=== PATIENT | female | born 1995 | race Caucasian/White ===

== ENCOUNTER 2019-09-10 11:16 | Emergency (ER) | payer OTHER ==
--- NOTE | 2019-09-10 12:16 | EKG ---
Test Date: 2019-09-10 Test Time: 11:40:36 [place] Planning Manager: GLADIS MEASUREMENT RESULTS: Intervals: Rate: 88 WV: 148 QRSD: 92 QT: 366 QTc: 442 [place]: P: 29 WV: 148 QRS: -14 T: 16 INTERPRETIVE STATEMENTS: Normal sinus rhythm Incomplete right bundle branch block Borderline ECG No previous ECG available for comparison Electronically Signed On 09-10-19 12:16:09 DOOR TRIMMER by Adrian Suarez
[2019-09-10 12:20] LABS: Absolute Lymphocytes (CBC) 1.1 K/uL (0.7-4.9); Basophils % 0.2 % (0-1.3); Hematocrit 41.8 % (36.0-45.0); Lymphocytes % 7.2 % (15.3-44.8); MPV 9.1 fL (7.6-11.3); RBC Red Blood Cell Count 5.02 M/uL (3.86-4.86)
[2019-09-10] MEDS ORDERED: NA CHLORIDE 0.9% 1,000 ML ONE (12:21)
[2019-09-10] MEDS ORDERED: KETOROLAC 30 MG/ML INJ ONE (12:21)
--- NOTE | 2019-09-10 12:21 | RAD REPORT ---
EXAM DESCRIPTION: RAD - Chest Single View - 09/10/2019 12:15 pm CLINICAL HISTORY: Chest pain COMPARISON: None. TECHNIQUE: AP portable chest image was obtained 1152 hours . FINDINGS: Lungs are clear. Heart and vasculature are normal. No measurable pleural effusion and no p neumothorax. No acute bony abnormality seen. No acute aortic findings suspected. IMPRESSION: No acute cardiopulmonary process.
[2019-09-10 12:54] LABS: ALT/SGPT 25 U/L (12-78); AST/SGOT 17 U/L (15-37); Albumin 4.6 g/dL (3.4-5.0); Alkaline Phosphatase 79 U/L (45-117); BUN Blood Urea Nitrogen 15 mg/dL (7-18); Bicarbonate 27 mmol/L (21-32); Bilirubin Direct 0.2 mg/dL (0-0.2); Glucose Level 91 mg/dL (74-106); Potassium 4.2 mmol/L (3.5-5.1); Protein, Total 8.3 g/dL (6.4-8.2); Sodium Level 139 mmol/L (136-145)
[2019-09-10 12:55] LABS: NT PRO-BNP 22 pg/mL (<125); Troponin (Emerg Dept Use Only) < 0.02 ng/mL (0.0-0.045)
[2019-09-10 13:37] LABS: Urine Blood 2+ (NEG); Urine Glucose NEGATIVE (NEG); Urine Protein 1+ (NEG); Urine Specific Gravity 1.015 (1.005-1.030); Urine pH >8.5 (5.0-7.0)
--- NOTE | 2019-09-10 13:52 | RAD REPORT ---
EXAM DESCRIPTION: CT - Chest For Pe Angio - 09/10/2019 1:25 pm CLINICAL HISTORY: CHEST PAIN COMPARISON: Chest Single View dated 09/10/2019 TECHNIQUE: Dynamically enhanced 3 mm thick images of the chest were obtained during administration o f approximately 150mL Isovue 370 IV contrast. Coronal and oblique MIP reconstruction images were gene rated and reviewed. Exam utilizes a protocol to evaluate the pulmonary arterial tree. All CT scans are performed using dose optimization technique as appropriate and may include automated exposure control or mA/KV adjustment according to patient size. FINDINGS: No pulmonary emboli are identified. Lung base assessment in the far peripheral branches so mewhat limited due to motion. Likelihood of pulmonary embolic disease is felt to be low. The aorta as imaged shows no acute or suspicious finding. No pericardial thickening or effusion. No infiltrate or mass in the lung parenchyma. No pleural effusion or pleural thickening. No mediastinal or hilar suspicious masses. No chest wall masses or abnormal axillary lymphadenopathy. IMPRESSION: No pulmonary emboli identified. No other significant or suspicious findings.
--- NOTE | 2019-09-10 14:30 | EDPHYS ---
Physician Documentation [facility] Name: Ebony Bolivar Age: 23 yrs Sex: Female : 1995 Arrival Date: 09/10/2019 Time: 11:29 Bed 14 Private MD: ED Physician Jung Knowles HPI: 09/10 11:50 This 23 yrs old Female presents to ER via EMS with complaints of Chest Pain. cp 11:50 The patient or guardian reports chest pain that is located primarily in the substernal cp area. 11:50 The pain radiates to left upper chest. cp 11:50 Associated signs and symptoms: Pertinent positives: palpitations, shortness of breath, cp Pertinent negatives: abdominal pain, lower extremity pain, lower extremity swelling, syncope. The chest pain is described as sharp. Duration: The patient or guardian reports a single episode, that is still ongoing. 11:50 Severity of pain: in the emergency department the pain is a 8 / 10. Patient reports cp being ill over past 2 weeks causing her to be inactive and in bed over this time. 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 - Social history:: Smoking status: Patient/guardian denies using tobacco. - Ebola Screening: : No symptoms or risks identified at this time. ROS: 11:57 Constitutional: Negative for body aches, chills, fever, poor PO intake. cp 11:57 Eyes: Negative for injury, pain, redness, and discharge. cp 11:57 ENT: Negative for drainage from ear(s), ear pain, sore throat, difficulty swallowing, difficulty handling secretions. 11:57 Cardiovascular: Positive for chest pain, of the mid-sternal area and anterior aspect of left upper chest, palpitations, Negative for edema. 11:57 Respiratory: Positive for shortness of breath, at rest. Negative for cough, wheezing. 11:57 Abdomen/GI: Negative for abdominal pain, nausea, vomiting, and diarrhea. 11:57 Back: Negative for pain at rest, pain with movement. 11:57 Skin: Negative for rash. 11:57 Neuro: Negative for altered mental status, headache, syncope, weakness. 11:57 All other systems are negative. Exam: 11:50 ECG was reviewed by the Attending Physician. cp 12:00 Constitutional: The patient appears in no acute distress, alert, awake, cp non-diaphoretic, non-toxic, well developed, well nourished. 12:00 Head/Face: Normocephalic, atraumatic. cp 12:00 Eyes: Periorbital structures: appear normal, Conjunctiva: normal, no exudate, no injection, Lids and lashes: appear normal, bilaterally. 12:00 ENT: External ear(s): are unremarkable, Nose: is normal, Mouth: is normal, Posterior pharynx: is normal, airway is patent, no erythema, no exudate. 12:00 Neck: ROM/movement: is normal, is supple, without pain, no range of motions limitations, no nuchal rigidity. 12:00 Chest/axilla: Inspection: normal. 12:00 Cardiovascular: Rate: normal, Rhythm: regular, Heart sounds: murmur, not appreciated, rub, not appreciated, gallop, not appreciated, Edema: is not appreciated, JVD: is not appreciated. 12:00 Respiratory: the patient does not display signs of respiratory distress, Respirations: normal, no use of accessory muscles, no retractions, no splinting, no tachypnea, labored breathing, is not present, Breath sounds: are clear throughout, no decreased breath sounds, no stridor, no wheezing. 12:00 Abdomen/GI: Inspection: abdomen appears normal, Palpation: abdomen is soft and non-tender, in all quadrants. 12:00 Back: pain, is absent, ROM is normal. 12:00 Skin: no rash present. 12:00 Neuro: Orientation: to person, place \T\ time. Mentation: is normal, Cerebellar function: is grossly normal, Motor: moves all fours, strength is normal, Sensation: is normal. Vital Signs: 11:35 BP 120 / 64; Pulse 91; Resp 18; Temp 97.9; Pulse Ox 100% on R/A; Weight 74.84 kg; hb Height 5 ft. 3 in. (160.02 cm); Pain 8/10; 13:13 BP 105 / 48; Pulse 82; Resp 17; Temp 97.6(O); Pulse Ox 100% on R/A; mh5 14:38 BP 116 / 72; Pulse 86; Resp 17 S; Pulse Ox 100% on R/A; ca1 11:35 Body Mass Index 29.23 (74.84 kg, 160.02 cm) hb MDM: 11:30 Patient medically screened. john 12:00 Differential diagnosis: abnormal EKG, chest wall pain, cholecystitis, Cholelithiasis cp costochondritis, myocarditis, pancreatitis, pericarditis, pleurisy, pneumonia, pneumothorax, pulmonary embolus. 14:28 Data reviewed: vital signs, nurses notes, lab test result(s), EKG, radiologic studies, cp CT scan, plain films. 14:28 Test interpretation: by ED physician or midlevel provider: ECG, plain radiologic cp studies, chest xray negative for infiltrates. Counseling: I had a detailed discussion with the patient and/or guardian regarding: the historical points, exam findings, and any diagnostic results supporting the discharge/admit diagnosis, lab results, radiology results, to return to the emergency department if symptoms worsen or persist or if there are any questions or concerns that arise at home. Response to treatment: the patient's symptoms have markedly improved after treatment, and as a result, I will discharge patient. Special discussion: Based on the patient's history, exam, and Dx evaluation, there is no indication for emergent intervention or inpatient Tx. It is understood by the patient/guardian that if the Sx's persist or worsen they need to return immediately for re-evaluation. 09/10 11:48 Order name: Basic Metabolic Panel; Complete Time: 13:39 cp 09/10 11:48 Order name: CBC with Diff; Complete Time: 12:37 cp 09/10 12:37 Interpretation: Normal except: WBC 15.6; RBC 5.02; KENRICK% 86.8; LYM% 7.2; NEUT A 13.6. cp 09/10 11:48 Order name: LFT's; Complete Time: 13:39 cp 09/10 13:40 Interpretation: Normal except: TP 8.3; GLOB 3.7. cp 09/10 11:48 Order name: Magnesium; Complete Time: 13:39 cp 09/10 11:48 Order name: NT PRO-BNP; Complete Time: 13:39 cp 09/10 11:48 Order name: PT-INR; Complete Time: 12:37 cp 09/10 11:48 Order name: Troponin (emerg Dept Use Only); Complete Time: 13:40 cp 09/10 11:48 Order name: XRAY Chest (1 view); Complete Time: 12:37 cp 09/10 11:48 Order name: D-Dimer; Complete Time: 12:37 cp 09/10 12:37 Order name: CT Chest For PE Angio; Complete Time: 13:54 cp 09/10 13:55 Interpretation: Report reviewed. cp 09/10 12:49 Order name: Urine Dipstick--Ancillary (enter results); Complete Time: 13:39 eb 09/10 13:40 Interpretation: Normal except: UKET 2+; UBLD 2+; UPROT 1+. cp 09/10 12:49 Order name: Urine --Ancillary (enter results); Complete Time: 13:40 eb 09/10 11:37 Order name: EKG; Complete Time: 11:37 cp 09/10 11:37 Order name: EKG - Nurse/Tech; Complete Time: 11:40 cp 09/10 11:48 Order name: Cardiac monitoring; Complete Time: 12:30 cp 09/10 11:48 Order name: IV Saline Lock; Complete Time: 12:30 cp 09/10 11:48 Order name: Labs collected and sent; Complete Time: 12:30 cp 09/10 11:48 Order name: O2 Per Protocol; Complete Time: 12:30 cp 09/10 11:48 Order name: O2 Sat Monitoring; Complete Time: 12:30 cp 09/10 11:48 Order name: Urine Test (obtain specimen); Complete Time: 12:43 cp 09/10 11:48 Order name: Urine Dipstick-Ancillary (obtain specimen); Complete Time: 12:42 cp EC:50 Rate is 88 beats/min. Rhythm is regular. IL interval is normal. QRS interval is normal. cp QT interval is normal. Administered Medications: 12:10 Drug: NS 0.9% 1000 ml Route: IV; Rate: 1000 ml/hr; Site: left antecubital; ca1 20:52 Follow up: Response: No adverse reaction; IV Status: Completed infusion; 1315 ca1 12:42 Drug: TORadol - Ketorolac 15 mg Route: IVP; Site: left antecubital; ca1 13:30 Follow up: Response: No adverse reaction; Pain is decreased ca1 Disposition: 09/10/19 14:29 Discharged to Home. Impression: Other chest pain. - Condition is Stable. - Discharge Instructions: Nonspecific Chest Pain. - Prescriptions for ketorolac 10 mg Oral tablet - take 1 tablet by ORAL route every 6 hours As needed; 15 tablet. - Medication Reconciliation Form, Thank You Letter, Antibiotic Education, Prescription Opioid Use, Work release form form. - Follow up: Private Physician; When: 2 - 3 days; Reason: Recheck today's complaints. - Problem is new. - Symptoms have improved. Addendum: 09/13/2019 08:09 Co-signature as Attending Physician, Jung Knowles MD I agree with the assessment and c velazquez plan of care. Signatures: Dispatcher [employer] EDDE Jung Knowles MD MD cha Page, Corey, PA PA cp Dee Dee Malik, CAMI RN Smita Monzon RN RN ca1 Corrections: (The following items were deleted from the chart) 09/10 14:39 14:29 09/10/2019 14:29 Discharged to Home. Impression: Other chest pain. Condition is ca1 Stable. Forms are Medication Reconciliation Form, Thank You Letter, Antibiotic Education, Prescription Opioid Use. Follow up: Private Physician; When: 2 - 3 days; Reason: Recheck today's complaints. Problem is new. Symptoms have improved. cp
--- NOTE | 2019-09-10 14:30 | ER ---
Nurse's Notes [facility] Name: Ebony Bolivar Age: 23 yrs Sex: Female : 1995 Arrival Date: 09/10/2019 Time: 11:29 Bed 14 Private MD: Diagnosis: Other chest pain Presentation: 09/10 11:34 Presenting complaint: EMS states: Substernal chest pain that radiates to left upper hb chest and SOB that started while moving boxes at work 30 mins [employer]. Transition of care: patient was not received from another setting of care. Onset of symptoms was September 10, 2019. Risk Assessment: Do you want to hurt yourself or someone else? Patient reports no desire to harm self or others. Initial Sepsis Screen: Does the patient meet any 2 criteria? No. Patient's initial sepsis screen is negative. Does the patient have a suspected source of infection? No. Patient's initial sepsis screen is negative. Care prior to arrival: None. 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 - Social history:: Smoking status: Patient/guardian denies using tobacco. - Ebola Screening: : No symptoms or risks identified at this time. Screenin:45 Abuse screen: Denies threats or abuse. Denies injuries from another. Nutritional ca1 screening: No deficits noted. Tuberculosis screening: No symptoms or risk factors identified. Fall Risk IV access (20 points). Assessment: 11:45 General: Appears in no apparent distress. comfortable, Behavior is calm, cooperative, ca1 appropriate for age. Pain: Complains of pain in anterior aspect of left upper chest and mid-sternal area Pain does not radiate. Pain currently is 8 out of 10 on a pain scale. Pain began 2 hours ago. Is intermittent. Neuro: Level of Consciousness is awake, alert, obeys commands, Oriented to person, place, time, situation, Appropriate for age. Cardiovascular: Heart tones S1 S2 present Capillary refill < 3 seconds Patient's skin is warm and dry. Rhythm is sinus tachycardia. Respiratory: Airway is patent Respiratory effort is even, unlabored, Respiratory pattern is regular, symmetrical, Breath sounds are clear bilaterally. GI: Abdomen is round non-distended, Bowel sounds present X 4 quads. Abd is soft and non tender X 4 quads. : No signs and/or symptoms were reported regarding the genitourinary system. EENT: No signs and/or symptoms were reported regarding the EENT system. Derm: Skin is intact, is healthy with good turgor, Skin is pink, warm \T\ dry. Musculoskeletal: Circulation, motion, and sensation intact. Capillary refill < 3 seconds. 12:29 Reassessment: Patient appears in no apparent distress at this time. Patient and/or ca1 family updated on plan of care and expected duration. Pain level reassessed. Patient is alert, oriented x 3, equal unlabored respirations, skin warm/dry/pink. 13:24 Reassessment: Patient appears in no apparent distress at this time. Patient is alert, ca1 oriented x 3, equal unlabored respirations, skin warm/dry/pink. 14:38 Reassessment: Patient appears in no apparent distress at this time. Patient is alert, ca1 oriented x 3, equal unlabored respirations, skin warm/dry/pink. Vital Signs: 11:35 BP 120 / 64; Pulse 91; Resp 18; Temp 97.9; Pulse Ox 100% on R/A; Weight 74.84 kg; hb Height 5 ft. 3 in. (160.02 cm); Pain 8/10; 13:13 BP 105 / 48; Pulse 82; Resp 17; Temp 97.6(O); Pulse Ox 100% on R/A; mh5 14:38 BP 116 / 72; Pulse 86; Resp 17 S; Pulse Ox 100% on R/A; ca1 11:35 Body Mass Index 29.23 (74.84 kg, 160.02 cm) hb ED Course: 11:29 Patient arrived in ED. hb 11:29 Jung Umanzor PA is PHCP. cp 11:30 Jung Knowles MD is Attending Physician. john 11:35 Triage completed. hb 11:35 Arm band placed on. hb 11:38 Smita Monzon, RN is Primary Nurse. ca1 11:45 Patient has correct armband on for positive identification. Placed in gown. Bed in low ca1 position. Call light in reach. Side rails up X 1. farm marketer on. Pulse ox on. NIBP on. Warm blanket given. 11:45 No provider procedures requiring assistance completed. ca1 11:49 EKG done, by formulation technician. reviewed by Jung PERDUE. at1 12:10 Inserted saline lock: 22 gauge in left antecubital area, using aseptic technique. Blood ca1 collected. Patient maintains SpO2 saturation greater than 95% on room air. 12:10 Initial lab(s) drawn, by me, sent to lab. ca1 12:15 XRAY Chest (1 view) In Process Unspecified. EDMS 13:26 CT Chest For PE Angio In Process Unspecified. EDMS 14:39 IV discontinued, intact, bleeding controlled, No redness/swelling at site. Pressure ca1 dressing applied. Administered Medications: 12:10 Drug: NS 0.9% 1000 ml Route: IV; Rate: 1000 ml/hr; Site: left antecubital; ca1 20:52 Follow up: Response: No adverse reaction; IV Status: Completed infusion; 1315 ca1 12:42 Drug: TORadol - Ketorolac 15 mg Route: IVP; Site: left antecubital; ca1 13:30 Follow up: Response: No adverse reaction; Pain is decreased ca1 Intake: Outcome: 14:29 Discharge ordered by . cp 14:39 Discharged to home ambulatory, with significant other. ca1 14:39 Condition: stable 14:39 Discharge instructions given to patient, Instructed on discharge instructions, follow up and referral plans. medication usage, Demonstrated understanding of instructions, follow-up care, medications, Prescriptions given X 1. 14:39 Patient left the ED. ca1 Signatures: Dispatcher [employer] EDMS Jung Knowles MD MD cha Gonzales, Amanda, store team leader EKG Tat1 Jung Umanzor PA PA cp Baxter, Heather, RN RN Betzy Mcdonald [facility] Smita Monzon RN RN ca1
[2019-09-10 15:58] VITALS: O2SAT 100
[2019-09-10 15:59] VITALS: TEMP 97.6
[2019-09-10 16:01] VITALS: BP 116/72
== END 2019-09-10 14:39 | disposition home or self-care (01) ==
LOC: ER 11:16
DX: R07.89 Other chest pain (principal)
CPT/HCPCS: 96361; 93005; 85025; 80048; 36415; 83735; 81025; 85610; 85379; 80076; 81003; 84484; 83880; 71275; 71045; 96374; 99285; Q9967; J7030